=== PATIENT | male | born 1990 | race Caucasian/White ===

== ENCOUNTER 2024-10-29 12:31 | Outpatient (REF) | payer OTHER, SELFPAY ==
--- OUTSIDE RECORDS SUMMARY | 2024-10-29 12:38 | XMS_ITS | Encounter Summary ---
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 Phone Patient, Has No Pcp Or Ref Primary Care Provider Unavailable Reason for Visit * Reason Comments Abdominal Pain Encounter Details Date Type Department Care Team (Late st Contact Info) Description 10/25/2024 2:07 PM EDT - 10/25/2024 5:17 PM EDT Emergency [facility] Emergency Department [address] [place] [address] Radha Aldana MD [address] [place] [id number] Abdominal pain, generalized (Primary Dx); Constipation, unspecified constipation type Discharge Disposition: Home or Self Care () Social History Tobacco Use Types Packs/Day Years Used Date Smoking Tobacco: Never Smokeless Tobacco: Never Tobacco Cessation:Counseling Given: Not Answered Alcohol Use Standard Drinks/Week Comments Not Currently 0 (1 standard drink = 0.6 oz pur e alcohol) Sex and Gender Information Value Date Recorded Sex Assigned at Male 10/25/2024 2:11 PM EDT Legal Sex Male 1:36 PM EDT Gender Identity Not on file Sexual Orientation Not on file documented as of this encounter Last Filed Vital Signs Vital Sign Reading Time Taken Comments Blood Pressure 119/74 10/25/2024 5:05 PM EDT Pulse 69 10/25/2024 5:05 PM EDT Temperature 36.6 ??C (97.8 ??F) 10/25/2024 5:05 PM ED T Respiratory Rate 18 10/25/2024 5:05 PM EDT Oxygen Saturation 100% 10/25/2024 5:05 PM EDT Inhaled Oxygen Concentration - - Weight 81.6 kg (180 lb) 10/25/2024 1:48 PM EDT Height 180.3 cm (5' 11 ) 10/25/2024 1:48 PM EDT Body Mass Index 25.1 10/25/2024 1:48 PM EDT documented in this encounter Discharge Instructions * Discharge Instructions* Radha Aldana MD - 10/25/2024 4:58 PM EDT Your labs are reassuring. Your CT shows constipation. Take laxative as prescribed once daily. Drinkplenty of fluids and eat high-fiber diet. Please follow-up with your primary care physician. Pleasereturn to the emergency department for new or worsening symptoms or other concerns. * Attachments The following attachments cannot be sent through Care Everywhere. * Constipation in adults ??? ED discharge instructions (Lithuanian) documented in this encounter Medications at Time of Discharge polyethylene glycol 3350 (MIRALAX) 17 gram packet Take 1 packet (17 g total) by mouth daily as needed for constipation. Mix powder in 4 to 8 oz of water, juice, coffee, or tea prior to administratio n. 30 packet 10/25/2024 documented as of this encounter ED Notes * Radha Aldana MD - 10/25/2024 1:36 PM EDT History HPI: Chief Complaint Patient presents with Abdominal Pain 34-year-old male who denies significant past medical history here today for evaluation of abdominalpain that has been ongoing for the past 2 weeks. He reports he initially had some pain in his left flank but has now moved to his left upper quadrant. No associated fever. He reports some nausea but no vomiting. Reports he is having bowel movements and denies blood in his stool. No associated urinary symptoms or testicular pain. He states he was seen at urgent care and had imaging showing intussusception and was discharged with plan to follow-up with gastroenterology as an outpatient. He presents to the emergency department today due to ongoing symptoms. Patient History History reviewed. No pertinent past medical history. History reviewed. No pertinent surgical history. No family history on file. Social History Tobacco Use Smoking status: Never Smokeless tobacco: Never Vaping Use Vaping status: Never Used Substance Use Topics Alcohol use: Not Currently Drug use: Not Currently Types: Marijuana Vaping Questions Responses Vaping Use Never User Sexuality and Gender Identity Sexuality Legal Information Legal first name: Zeb Legal last name: Omari Legal sex: Male Gender Identity Patient's sex assigned at : Male Organ Inventory Organs the patient currently has: Organs present at or expected at to develop: Organs surgically enhanced or constructed: Organs hormonally enhanced or developed: breasts cervix ovaries uterus vagina penis prostate testes Review of Systems REVIEW OF SYSTEMS: Physical Exam Physical Exam ED Triage Vitals [10/25/24 1352] Temp Heart Rate Resp BP SpO2 36.6 ??C (97.8 ??F) 90 20 123/84 100 % Temp Source Heart Rate Source Patient Position BP Location Set FiO2 (O2%) Temporal Pulse Oximeter Sitting Left arm -- Physical Exam Vitals and nursing note reviewed. Constitutional: General: He is not in acute distress. Appearance: He is well-developed. He is not ill-appearing, toxic-appearing or diaphoretic. HENT: Head: Normocephalic and atraumatic. Mouth/Throat: Mouth: Mucous membranes are moist. Pharynx: Oropharynx is clear. Eyes: General: No scleral icterus. Cardiovascular: Rate and Rhythm: Normal rate and regular rhythm. Heart sounds: Normal heart sounds. Pulmonary: Effort: Pulmonary effort is normal. Breath sounds: Normal breath sounds. Abdominal: General: Abdomen is flat. There is no distension. Palpations: Abdomen is soft. Tenderness: There is abdominal tenderness (mild) in the left upper quadrant. There is no right CVA tenderness, left CVA tenderness, guarding or rebound. Skin: General: Skin is warm and dry. Neurological: General: No focal deficit present. Mental Status: He is alert. Medical Decision Making and ED Course Assessment and Plan: 34-year-old male who denies significant past medical history here today for evaluation of abdominal pain that has been ongoing for the past 2 weeks. He is afebrile and his vitalsare stable. He is overall very well-appearing. He appears well-hydrated with moist mucous membranes. His abdomen is soft with some minimal tenderness in the left upper quadrant. Differential diagnosis includes gastritis, pancreatitis, splenic infarct, constipation, bowel obstruction among others. Labs reassuring and show no leukocytosis and normal CMP and lipase. UA negative for infection. CT without acute pathology but does show moderate stool bulging. Discussed with patient that her symptoms may be due to constipation. Given his reassuring abdominal exam as well as reassuring workup will discharge patient home with prescription for MiraLAX, oral hydration and high-fiber diet. Will follow-up with PCP as an outpatient. Discussed return precautions for worsening symptoms. Amount and/or Complexity of Data Reviewed: Type of data reviewed: external radiology data reviewed Type of external notes reviewed: specialist Details: Outpatient eval two years ago with urology for testicular pain with reassuring ultrasound Zeb Salcido : 1990 CSN: [id number] Radha Aldana MD 10/25/24 1705 documented in this encounter Plan of Treatment Not on file documented as of this encounter Procedures * Due to [place] state law, this organization might not be sharing negative HIV tests. Procedure Name Priority Date/Time Associated Diagnosis Comments CT ABDOMEN PELVIS W CONTRAST STAT 10/25/2024 3:23 PM EDT URINALYSIS W/REFLEX TO MICROSCOPIC & CULTURE Routine 10/25/2024 2:33 PM EDT MUNOZ TOP, URN Routine 10/25/2024 2:33 PM EDT UA/CULTURE REFLEX Routine 10/25/2024 2:3 3 PM EDT CBC AUTO DIFFERENTIAL STAT Add-on 10/25/2024 2:24 PM EDT LIPASE STAT Add-on 10/25/2024 2:24 PM EDT COMPREHENSIVE METABOLIC PANEL STAT Add-on 10/25/2024 2:24 PM EDT documented in this encounter Results * Due to [place] state law, this organization might not be sharing negative HIV tests. * CT Abd Pelvis W Contrast (10/25/2024 3:23 PM EDT) Anatomical Region Laterality Modality Body Computed Tomogra phy 10/25/2024 3:29 PM EDT Impressions 10/25/2024 4:00 PM EDT Moderate colonic stool burden. No acute intra-abdominal abnormality. IDez, have reviewed the examination and concur with the findings as reported or so edited. Trainee: ??Jose Ramon Phan If this radiology report contains a blank impression section, it is an incomplete radiology report. ??Please contact the interpreting radiologist or applicable radiology division as soon as possible to obtain the completed interpretation. ? Workstation ID: [id number] Up-to-date CT equipment and radiation dose reduction techniques were employed. CTDIvol: 13.2 mGy. DLP: 692 mGy-cm. Narrative 10/25/2024 4:00 PM EDT EXAMINATION: CT ABDOMEN PELVIS W CONTRAST INDICATION: Left upper quadrant abdominal pain TECHNIQUE: Images of the abdomen and pelvis were obtained with intravenous contrast. Coronal and sagittal reformats were generated. COMPARISON: None available. ?? FINDINGS: LOWER THORAX: The visualized lung bases are clear. HEPATOBILIARY: There is a 5 mm hypodensity in hepatic segment VIII. Patent portal and hepatic veins. Normal gallbladder. No biliary ductal dilatation. SPLEEN: No splenomegaly. PANCREAS: No focal masses or ductal dilatation. ADRENAL GLANDS: No adrenal nodules. KIDNEYS/URETERS: Symmetric parenchymal enhancement. No hydronephrosis, calculi, or solid mass lesions. GI TRACT: Tortuous large bowel with moderate stool burden. No wall thickening or distention. The appendix is normal. PERITONEUM/RETROPERITONEUM: No ascites or free air. LYMPH NODES: No lymphadenopathy. VESSELS: Normal caliber abdominal aorta. Tortuous, dilated left gonadal vein. PELVIC ORGANS/BLADDER: Decompressed urinary bladder.. BONES AND SOFT TISSUES: Vertebral body height and alignment is maintained. No suspicious osseous lesion. Left acetabular bone island. Soft tissues are within normal limits. Resulting Agency Comment [id number] Procedure Note Dez Caceres MD - 10/25/2024 EXAMINATION: CT ABDOMEN PELVIS W CONTRAST INDICATION: Left upper quadrant abdominal pain TECHNIQUE: Images of the abdomen and pelvis were obtained with intravenouscontrast. Coronal and sagittal reformats were generated. COMPARISON: None available. FINDINGS: LOWER THORAX: The visualized lung bases are clear. HEPATOBILIARY: There is a 5 mm hypodensity in hepatic segment VIII. Patentportal and hepatic veins. Normal gallbladder. No biliary ductaldilatation. SPLEEN: No splenomegaly. PANCREAS: No focal masses or ductal dilatation. ADRENAL GLANDS: No adrenal nodules. KIDNEYS/URETERS: Symmetric parenchymal enhancement. No hydronephrosis,calculi, or solid mass lesions. GI TRACT: Tortuous large bowel with moderate stool burden. No wallthickening or distention. The appendix is normal. PERITONEUM/RETROPERITONEUM: No ascites or free air. LYMPH NODES: No lymphadenopathy. VESSELS: Normal caliber abdominal aorta. Tortuous, dilated left gonadalvein. PELVIC ORGANS/BLADDER: Decompressed urinary bladder.. BONES AND SOFT TISSUES: Vertebral body height and alignment is maintained.No suspicious osseous lesion. Left acetabular bone island. Soft tissuesare within normal limits. IMPRESSION: Moderate colonic stool burden. No acute intra-abdominal abnormality. Dez Jones, have reviewed the examination and concur with the findings asreported or so edited. Trainee: Jose Ramon Phan If this radiology report contains a blank impression section, it is anincomplete radiology report. Please contact the interpreting radiologistor applicable radiology division as soon as possible to obtain thecompleted interpretation. Workstation ID: [id number] Up-to-date CT equipment and radiation dose reduction techniques wereemployed. CTDIvol: 13.2 mGy. DLP: 692 mGy-cm. us Radha Aldana MD [facility] CT PROCEDURES Final Result * Munoz Top, Urine (10/25/2024 2:33 PM EDT) Extra Tube Hold for add-ons. 10/25/2024 7:05 PM EDT [facility] Comment:Auto resulted. Urine Urine specimen collection, clean catch / Unknown Non-Blood Collection / Unknown 10/25/2024 2:33 PM EDT 10/25/2024 2:40 PM EDT us Radha Aldana MD LAB URINE ORDERABLES Final Res ult [facility] [address] [place] [address], [place] * (ABNORMAL) Urinalysis W/Reflex to Microscopic & Culture (10/25/2024 2:33 PM EDT) Color, Urine Light Yellow Colorless, Light Yellow, Yellow, Dark Yellow 10/25/2024 2:49 PM EDT [facility] Clarity, Urine Clear Clear 10/25/2024 2:49 PM EDT [facility] Specific [place], Urine 1.020 <1.030 10/25/2024 2:49 PM EDT [facility] pH, Urine 8.0 4.6 - 8.0 10/25/2024 2:49 PM EDT [facility] Protein, Urine Trace(A) Negative 10/25/2024 2:49 PM EDT [facility] Glucose, Urine Normal Normal 10/25/2024 2:49 PM EDT [facility] Ketones, Urine Negative Negative 10/25/2024 2:49 PM EDT [facility] Bilirubin, Urine Negative Negative 10/25/2024 2:49 PM EDT [facility] Blood, Urine Negative Negative 10/25/2024 2:49 PM EDT [facility] Nitrite, Urine Negative Negative 10/25/2024 2:49 PM EDT [facility] Urobilinogen, Urine Normal Normal 10/25/2024 2:49 PM EDT [facility] Leukocyte Esterase, Urine Negative Negative 10/25/2024 2:49 PM EDT [facility] WBC, Urine 1 0 - 2 /HPF 10/25/2024 2:49 PM EDT [facility] RBC, Urine 1 0 - 2 /HPF 10/25/2024 2:49 PM EDT [facility] Hyaline Casts, Urine 0 0 - 2 /LPF 10/25/2024 2:49 PM EDT [facility] Bacteria, Urine None Seen None /HPF /HPF 10/25/2024 2:49 PM EDT [facility] Mucus, Urine Rare /LPF 10/25/2024 2:49 PM EDT [facility] Urine Urine specimen collection, clean catch / Unknown Non-Blood Collection / Unknown 10/25/2024 2:33 PM EDT 10/25/2024 2:40 PM EDT us Radha Aldana MD LAB URINE ORDERABLES Final Res ult Performing Organization Address City/[facility]/ZIP Co de Phone Number [facility] [address] [place] [phone], [place] * Lipase (10/25/2024 2:24 PM EDT) Lipase 31 13 - 60 U/L 10/25/2024 3:02 PM EDT [facility] Blood Structure of peripheral vein / Unknown Venipuncture / Unknown 10/25/2024 2:24 PM EDT 10/25/2024 2:28 PM EDT us Radha Aldana MD LAB BLOOD ORDERABLES Final Res ult [facility] [address] [place] [phone], [place] * (ABNORMAL) CMP - Comprehensive Metabolic Panel (10/25/2024 2:24 PM EDT) NA 140 135 - 145 mmol/L 10/25/2024 3:02 PM EDT [facility] K 4.0 3.5 - 5.3 mmol/L 10/25/2024 3:02 PM [facility] Cl 104 98 - 107 mmol/L 10/25/2024 3:02 PM EDT [facility] CO2 25 22 - 32 mmol/L 10/25/2024 3:02 PM T [facility] Anion Gap 11 5 - 15 10/25/2024 3:02 PM T [facility] Glucose 102(H) 65 - 99 mg/dL 10/25/2024 3:02 PM [facility] Creatinine 1.05 0.60 - 1.30 mg/dL 10/25/2024 3:02 PM [facility] Calcium 9.4 8.6 - 10.5 mg/dL 10/25/2024 3:02 PM [facility] Total Protein 7.3 6.0 - 8.0 g/dL 10/25/2024 3:02 PM T [facility] Albumin 4.6 3.5 - 5.2 g/dL 10/25/2024 3:02 PM [facility] Bilirubin, Total 1.0 0.2 - 1.2 mg/dL 10/25/2024 3:02 PM [facility] Alkaline Phosphatase 55 35 - 129 U/L 10/25/2024 3:02 PM EDT [facility] AST 24 10 - 40 U/L 10/25/2024 3:02 PM T [facility] ALT 19 10 - 40 U/L 10/25/2024 3:02 PM T [facility] BUN 10 7 - 23 mg/dL 10/25/2024 3:02 PM EDT [facility] eGFR >90 >=60 mL/min/1. 73m2 10/25/2024 3:02 PM EDT [facility] Comment:The estimated glomer ular filtration rate (eGFR) is calculated using a new formula developed by the NKF-ASN task force to eliminate race-based correction factors. The new formula uses serum/plasma creatinine, age, and gender to determine eGFR. A value below 60mls/min might indicate kidney disease and will be flagged. For additional information, see Lorrie et al, Am J Kidney Dis. 2021;79(2):268- 288, A Unifying Approach for GFR estimation: Recommendations of the NKF-ASN Task Force on Reassessing the Inclusion of Race in Diagnosing Kidney Disease . Globulin, Total 2.7 2.1 - 4.2 g/dL 10/25/2024 3:02 PM EDT [facility] A/G Ratio 1.7 1.5 - 3.0 10/25/2024 3:02 PM EDT [facility] Blood Structure of peripheral vein / Unknown Venipuncture / Unknown 10/25/2024 2:24 PM EDT 10/25/2024 2:28 PM EDT us Radha Aldana MD LAB BLOOD ORDERABLES Final Res ult [facility] [address] [place] [phone], * (ABNORMAL) CBC Auto Differential (10/25/2024 2:24 PM EDT) WBC 4.6 3.8 - 10.8 10*3/uL 10/25/2024 2:50 PM EDT [facility] RBC 4.90 4.20 - 5.80 10*6/uL 10/25/2024 2:50 PM EDT [facility] Hemoglobin 11.9(L) 13.2 - 17.1 g/dL 10/25/2024 2:50 PM EDT [facility] Hematocrit 37.2(L) 38.5 - 50.0 % 10/25/2024 2:50 PM EDT [facility] MCV 75.9(L) 80.0 - 100.0 fL 10/25/2024 2:50 PM EDT [facility] MCH 24.3(L) 27.0 - 33.0 pg 10/25/2024 2:50 PM EDT [facility] MCHC 32.0 32.0 - 36.0 g/dL 10/25/2024 2:50 PM [facility] RDW 14.1 11.0 - 15.0 % 10/25/2024 2:50 PM [facility] Platelets 321 140 - 400 10*3/uL 10/25/2024 2:50 PM EDT [facility] MPV 9.3 7.5 - 12.5 fL 10/25/2024 2:50 PM EDT [facility] Neutrophil % 71.3 % 10/25/2024 2:50 PM EDT [facility] Immature Grans % 0.2 0.0 - 0.9 % 10/25/2024 2:50 PM EDT [facility] Lymphocyte % 20.1 % 10/25/2024 2:50 PM EDT [facility] Monocyte % 7.6 % 10/25/2024 2:50 PM EDT [facility] Eosinophil % 0.2 % 10/25/2024 2:50 PM EDT [facility] Basophil % 0.6 % 10/25/2024 2:50 PM T [facility] Neutrophil # 3.30 1.50 - 7.80 10*3/uL 10/25/2024 2:50 PM EDT [facility] Immature Grans # <0.03 <=0.03 10*3/uL 10/25/2024 2:50 PM EDT [facility] Lymphocyte # 0.90 0.85 - 3.90 10*3/uL 10/25/2024 2:50 PM EDT [facility] Monocyte # 0.40 0.20 - 0.95 10*3/uL 10/25/2024 2:50 PM EDT [facility] Eosinophil # <0.03 0.02 - 0.50 10*3/uL 10/25/2024 2:50 PM EDT [facility] Basophil # <0.03 0.00 - 0.20 10*3/uL 10/25/2024 2:50 PM EDT [facility] nRBC % 0.0 /100 WBCs 10/25/2024 2:50 PM EDT [facility] nRBC # <0.01 <0.01 10*3/uL 10/25/2024 2:50 PM EDT [facility] Blood Structure of peripheral vein / Unknown Venipuncture / Unknown 10/25/2024 2:24 PM EDT 10/25/2024 2:27 PM EDT us Radha Aldana MD LAB BLOOD ORDERABLES Final Res ult [facility] [address] [place] [address], documented in this encounter Visit Diagnoses Diagnosis Abdominal pain, generalized- Primary Constipation, unspecified constipation type documented in this encounter Administered Medications Inactive Administered Medications - up to 3 most recent administrations Medication Order MAR Action Action Date Dose Rate Site acetaminophen (TYLENOL) tablet 975 mg 975 mg, oral, Once, On 10/25/24 at 1430, 1 dose Given 10/25/2024 2:36 PM EDT 975 mg iohexoL (OMNIPAQUE) 350 mg iodine/mL contrast 10-100 mL 10-100 mL, intravenous, Once in imaging, contrast, Starting on Fri10/25/24 at 1515, 1 dose, Until Fri10/25/24 at 1515 Given 10/25/2024 3:15 PM EDT 100 mL ondansetron (ZOFRAN) injection 4 mg 4 mg, intravenous, Once, On Fri10/25/24 at 1430, 1 dose Given 10/25/2024 2:37 PM EDT 4 mg documented in this encounter Active and Recently Administered Medications Times are shown in EDT. Scheduled Medication Order 10/23/2024 10/24/2024 10/25/2024 acetaminophen (TYLENOL) tablet 975 mg (COMPLETED) 975 mg, oral, Once, On Fri10/25/24 at 1430, 1 dose 1436 (Given - Provid er: Leslie Tate RN) ondansetron (ZOFRAN) injection 4 mg (COMPLETED) 4 mg, intravenous, Once, On Fri10/25/24 at 1430, 1 dose 1437 (Given - Provid er: Leslie Tate RN) PRN Medication Order 10/23/2024 10/24/2024 10/25/2024 iohexoL (OMNIPAQUE) 350 mg iodine/mL contrast 10-100 mL (COMPLETED) 10-100 mL, intravenous, Once in imaging, contrast, Starting on Fri10/25/24 at 1515, 1 dose, Until Fri10/25/24 at 1515 1515 (Given - Provid er: RT Claudia(R)) documented in this encounter Care Teams Steam Plant Operator Relationship Specialty Start Date End Date Patient, Has No Pcp Or Ref DO NOT EDIT THIS RECORD VIA PROVIDER ON THE FLY PCP - General Automotive Dismantler 10/25/24 documented as of this encounter
--- OUTSIDE RECORDS SUMMARY | 2024-10-29 12:38 | XMS_ITS | Clinical Summary ---
Author Organization [employer] Address [address] [facility] [address] [place] [address] Care Team Providers Care Public Transportation Inspector Name Role Phone Toyin Burch MD Primary Care Pro vider Allergies Active Allergy Reactions Criticality Noted Date Comments Topiramate Other 10/29/2024 bruising Medications polyethylene glycol, PEG, 3350 (Miralax) 17 g packet TAKE 1 PACKET 17 GIVE TOTAL) BY MOUTH DAILY NEEDED FOR CONSTIPATION MIX POWDER IN 4 TO 8 OZ OF WATER, JUICE, COFFEE, OR TEA PRIOR TO ADM Active omeprazole (PriLOSEC) [address] capsuleIndicati ons:Dark stools Take 1 capsule (40 mg) by mouth before breakfast. Do not crush or chew. 90 capsule 5 10/30/19 26 Active ondansetron (Zofran) 4 MG tablet Take 1 tablet (4 mg) by mouth every 8 (eight) hours if needed for nausea or vomiting for up to 7 days. 20 tablet 1 5 11/06/19 25 Active Encounters Date Type Department Care Team Description 10/29/2024 10:15 AM EDT Office Visit [facility] MEDICINE [address] [place] [phone] Toyin Burch MD Liver lesion (Primary Dx); Dietary counseling; Exercise counseling; Dark stools; Diarrhea, unspecified type; Annual physical exam 10/29/2024 Travel 10/28/2024 Telephone [facility] MEDICINE [address] [place] [phone] Toyin Burch MD CHART PREP 10/22/2024 Telephone [facility] MEDICINE [address] [place] [address] Toyin Burch MD new patient visit from Last 3 Months Immunizations Immunization Administration Dates Next Due DTP 08/05/1996, 4,1992,06/28,1992 Hep B, Adolescent or Pediatric 1992,1991,1992 Hib (PRP-T) 05/17/1993, 3,1992,04/19 Influenza, IIV3, injectable 03/25/2006, 5,04/03/2004 MMR 08/05/1996,05/17/1993 Meningococcal MCV4P ACYW-135 02/11/2007 OPV, Trivalent 08/05/1996, 4,1992,04/19 TD (adult), 2 Lf tetanus tox oid, preservative free, adsorbed 12/30/2003 Tdap 04/26/2023,03/03/2008 Varicella 03/03/2008,04/27/1998 Family History Medical History Relation Name Comments [place] Father dm2 Father CBAF ,HF Maternal Grandfather Stroke Maternal Grandfather Breast cancer Mother DM2 Mother Relation Name Status Comments Father Maternal Grandfather Mother Social History Tobacco Use Types Packs/Day Years Used Date Smoking Tobacco: Never Passive Smoke Exposure: Never Smokeless Tobacco: Never Tobacco Cessation:Counseling Given: Not Answered Alcohol Use Standard Drinks/Week Comments Yes 0 (1 standard drink = 0.6 oz pur e alcohol) 16 onz beer once a week Depression Answer Date Recorded Patient Health Questionnaire-9 Score 7 10/29/2024 Patient Health Questionnaire-9 Score 7 10/29/2024 Last PHQ-9: Questionnaire Data Not on file 0 10/29/2024 Housing Stability Answer Date Recorded What is your housing situation today? I have jose a meza 10/29/[address] you li ve. Do you have problems with any of the following? None of the above 10/29/2024 Food Insecurity Answer Date Recorded Within the past 12 months, y ou worried that your food would run out before you got money to buy more: Never True 10/29/2024 Within the past 12 months,th e food you bought just didn't last and you didn't have enough money to get more: Never True Transportation Answer Date Recorded In the past 12 months, has l ack of transportation kept you from medical appts, meetings, work or from getting things needed for daily living? No 10/29/2024 Utilities Answer Date Recorded In the past 12 months, has t he electric, gas, oil or water company threatened to shut off services in your home? No 10/29/2024 Depression Answer Date Recorded Patient Health Questionnaire-2 Score 0 10/29/2024 Internet Access Answer Date Recorded Internet Access Q1 Yes 10/29/2024 Internet Access Q2 Not on file 10/29/2024 Sex and Gender Information Value Date Recorded Sex Assigned at Male 10/28/2024 9:44 AM EDT Legal Sex Male 4:11 PM EDT Gender Identity Male 10/28/2024 9:44 AM EDT Sexual Orientation Straight 10/29/2024 11 :26 AM EDT Last Filed Vital Signs Vital Sign Reading Time Taken Comments Blood Pressure 114/78 10/29/2024 10:25 AM EDT Pulse 89 10/29/2024 10:25 AM EDT Temperature 36.7 ??C (98 ??F) 10/29/2024 10:25 AM EDT Respiratory Rate 20 10/29/2024 10:25 AM EDT Oxygen Saturation 98% 10/29/2024 10:25 AM EDT Inhaled Oxygen Concentration - - Weight 86 kg (189 lb 9.6 oz) 10/29/2024 10:25 AM EDT Height 180.3 cm (5' 11 ) 10/29/2024 10:25 AM EDT Body Mass Index 26.44 10/29/2024 10:25 AM EDT Plan of Treatment Upcoming Encounters Date Type Department Care Team (Late st Contact Info) Description 02/02/2025 3:00 PM EDT Office Visit [facility] MEDICINE [address] [place] [phone] Toyin Burch MD [address], [place] [phone] Health Maintenance Due Date Last Done Comments HIV Screening 1992 Family Planning (PISQ) 02/11/2007 Hepatitis C Screening 02/11/2010 Hepatitis A Vaccines (1 of 2 - Risk 2-dose series) 02/11/2011 COVID-19 Vaccine (2 - 2024-25 season) 2024 03/12/2021 Influenza Vaccine (#1) 2024 6, 04/02/2005, 04/03/2004 Alcohol/Substance Use Screening 10/29/2025 10/29/2024 Depression Screening 10/29/2025 10/29/2024, 10/30/19 SDOH Screening 10/29/2025 10/29/2024 Tobacco Screening 10/29/2025 10/29/2024 DTaP/Tdap/Td Vaccines (8 - Td or Tdap) 04/26/2033 04/26/2023, 03/03/2008, 12/30/2003, Additional history exists Zoster Vaccines (1 of 2) 02/11/2042 RSV Patients and Patients Aged 60 years or older (1 - 1-dose 75+ series) 02/11/2067 Hepatitis B Vaccines Completed 1992, 1992, 1992 HIB Vaccines Completed 05/17/1993, 08/14, 1992, Additional history exists IPV Vaccines Completed 08/05/1996, 06/1993, 1992, Additional history exists Meningococcal Vaccine Aged Out 02/11/2007 No jack tracey eligible based on patient's age to complete this topic HPV Vaccines Aged Out No longer eligi ble based on patient's age to complete this topic Meningococcal B Vaccine Aged Out No l onger eligible based on patient's age to complete this topic Pneumococcal Vaccine: Pediatrics (0 to 5 Years) and At-Risk Patients (6 to 49) Years) Aged Out No longer eligible based on patient's age to complete this topic RSV under 20 months Aged Out No longe r eligible based on patient's age to complete this topic Rotavirus Vaccines Aged Out No longer eligible based on patient's age to complete this topic Insurance [facility] [id number] Care Teams Public Transportation Inspector Relationship Specialty Start Date End Date Toyin Burch MD [address] [place] [address] [phone] PCP - General Internal Medicine 10/29/24
--- OUTSIDE RECORDS SUMMARY | 2024-10-29 12:38 | XMS_ITS | Clinical Summary ---
Author Organization [facility] Address [address] [place] [address] Care Team Providers Care Radiology Resident Name Role Phone Patient, Has No Pcp Or Ref Primary Care Provider Unavailable Allergies No known active allergies Medications polyethylene glycol 3350 (MIRALAX) 17 gram packet Take 1 packet (17 g total) by mouth daily as needed for constipatio n. Mix powder in 4 to 8 oz of water, juice, coffee, or tea prior to administrat ion. 30 packet 10/25/2024 Active Encounters Date Type Department Care Team Description 10/25/2024 2:07 PM EDT - 10/25/2024 5:17 PM EDT Emergency [facility] Emergency Department [address] [place] [address] Radha Aldana MD Abdominal pain, generalized (Primary Dx); Constipation, unspecified constipation type Discharge Disposition: Home or Self Care (01) from Last 3 Months Social History Tobacco Use Types Packs/Day Years [...] on file Sexual Orientation Not on file Last Filed Vital Signs Vital Sign Reading [...] Mass Index 25.1 10/25/2024 1:48 PM EDT Plan of Treatment Health Maintenance Due Date Last Done Comments HIV Screening 1992 Hepatitis C Screening 1992 DTaP,Tdap,and Td Vaccines (7 - Td or Tdap) 03/03/2018 03/03/2008, 12/30/2003, 08/05/1996, Additional history exists COVID-19 Vaccine ( season) 2024 Alcohol/Substance Use Screening 06/16/2024 Depression Screening and Follow-Up 06/16/2024 Social Drivers of Health Annual Screening 06/16/2024 Influenza Vaccine (Season Ended) 2025 03/25/2006, 04/02/2005, 04/03/2004 RSV Vaccine (60+ years old and patients) (1 - 1-dose 75+ series) 02/11/2067 Hepatitis B Vaccines Completed 1992, 1992, 1992 Varicella Vaccines Completed 03/03/2008, 04/27/1998 Pneumococcal Vaccine: Pediatric (0-5 Years) and At-Risk Patients (6-50 Years) Aged Out No longer eligible based on patient's age to complete this topic Procedures * Due to [place] state law, this organization might not be sharing negative HIV tests. Procedure Name Priority Date/Time Associated Diagnosis Comments CT ABDOMEN PELVIS W CONTRAST STAT 10/25/2024 3:23 PM EDT MUNOZ TOP, URN Routine 10/25/2024 2:33 PM EDT UA/CULTURE REFLEX Routine 10/25/2024 2:3 3 PM EDT URINALYSIS W/REFLEX TO MICROSCOPIC & CULTURE Routine 10/25/2024 2:33 PM EDT LIPASE STAT Add-on 10/25/2024 2:24 PM EDT COMPREHENSIVE METABOLIC PANEL STAT Add-on 10/25/2024 2:24 PM EDT CBC AUTO DIFFERENTIAL STAT Add-on 10/25/2024 2:24 PM EDT from Last 3 Months Results * Due to [place] state law, this organization might not be [...] obtain the completed interpretation. ? Workstation ID: [id number] Up-to-date CT equipment and radiation dose reduction [...] are within normal limits. Resulting Agency Comment [id number] Procedure Note Dez Caceres MD - 10/25/2024 [...] possible to obtain thecompleted interpretation. Workstation ID: [id number] Up-to-date CT equipment and radiation dose reduction techniques wereemployed. CTDIvol: 13.2 mGy. DLP: 692 mGy-cm. us Radha Aldana MD IM CT PROCEDURES Final Result * Munoz Top, Urine (10/25/2024 2:33 PM EDT) Extra Tube Hold for add-ons. 10/25/2024 7:05 PM EDT [facility] Comment:Auto resulted. Urine Urine specimen collection, clean catch / Unknown Non-Blood Collection / Unknown 10/25/2024 2:33 PM EDT 10/25/2024 2:40 PM EDT us Radha Aldana MD LAB URINE ORDERABLES Final Res ult [facility] [address] [place] [address], [place] * (ABNORMAL) Urinalysis W/Reflex to Microscopic & Culture (10/25/2024 2:33 PM EDT) Pathologist [facility] Color, Urine Light Yellow Colorless, Light Yellow, Yellow, Dark Yellow 10/25/2024 2:49 PM EDT [facility] Clarity, Urine Clear Clear 10/25/2024 2:49 PM EDT [facility] Specific [place], Urine 1.020 <1.030 10/25/2024 2:49 PM EDT [facility] pH, Urine 8.0 4.6 - 8.0 10/25/2024 2:49 PM EDT [facility] Protein, Urine Trace(A) Negative 10/25/2024 2:49 PM EDT [facility] Glucose, Urine Normal Normal 10/25/2024 2:49 PM EDT [facility] Ketones, Urine Negative Negative 10/25/2024 2:49 PM EDT [facility] Bilirubin, Urine Negative Negative 10/25/2024 2:49 PM EDT [facility] Blood, Urine Negative Negative 10/25/2024 2:49 PM EDT [facility] Nitrite, Urine Negative Negative 10/25/2024 2:49 PM EDT [facility] Urobilinogen, Urine Normal Normal 10/25/2024 2:49 PM EDT [facility] Leukocyte Esterase, Urine Negative Negative 10/25/2024 2:49 PM EDT [facility] WBC, Urine 1 0 - 2 /HPF 10/25/2024 2:49 PM EDT [facility] RBC, Urine 1 0 - 2 /HPF 10/25/2024 2:49 PM EDT [facility] Hyaline Casts, Urine 0 0 - 2 /LPF 10/25/2024 2:49 PM EDT [facility] Bacteria, Urine None Seen None /HPF /HPF 10/25/2024 2:49 PM EDT [facility] Mucus, Urine Rare /LPF 10/25/2024 2:49 PM EDT [facility] Urine Urine specimen collection, clean catch / Unknown Non-Blood Collection / Unknown 10/25/2024 2:33 PM EDT 10/25/2024 2:40 PM EDT us Radha Aldana MD LAB URINE ORDERABLES Final Res ult [facility] [address] [place] [address], * (ABNORMAL) CBC Auto Differential (10/25/2024 2:24 PM EDT) WBC 4.6 3.8 - 10.8 10*3/uL 10/25/2024 2:50 PM EDT [facility] RBC 4.90 4.20 - 5.80 10*6/uL 10/25/2024 2:50 PM EDT [facility] Hemoglobin 11.9(L) 13.2 - 17.1 g/dL 10/25/2024 2:50 PM EDT [facility] Hematocrit 37.2(L) 38.5 - 50.0 % 10/25/2024 2:50 PM EDT [facility] MCV 75.9(L) 80.0 - 100.0 fL 10/25/2024 2:50 PM [facility] MCH 24.3(L) 27.0 - 33.0 pg 10/25/2024 2:50 PM EDT [facility] MCHC 32.0 32.0 - 36.0 g/dL 10/25/2024 2:50 PM [facility] RDW 14.1 11.0 - 15.0 % 10/25/2024 2:50 PM [facility] Platelets 321 140 - 400 10*3/uL 10/25/2024 2:50 PM [facility] MPV 9.3 7.5 - 12.5 fL 10/25/2024 2:50 PM [facility] Neutrophil % 71.3 % 10/[facility]24 [facility] Immature Grans % 0.2 0.0 - 0.9 % 10/25/2024 2:50 PM [facility] Lymphocyte % 20.1 % 10/25/2024 2:50 PM EDT [facility] Monocyte % 7.6 % 10/25/2024 2:50 PM EDT [facility] Eosinophil % 0.2 % 10/25/2024 2:50 PM EDT [facility] Basophil % 0.6 % 10/25/2024 2:50 PM [facility] Neutrophil # 3.30 1.50 - 7.80 10*3/uL 10/25/2024 2:50 PM T [facility] Immature Grans # <0.03 <=0.03 10*3/uL 10/25/2024 2:50 PM EDT [facility] Lymphocyte # 0.90 0.85 - 3.90 10*3/uL 10/25/2024 2:50 PM EDT [facility] Monocyte # 0.40 0.20 - 0.95 10*3/uL 10/25/2024 2:50 PM EDT [facility] Eosinophil # <0.03 0.02 - 0.50 10*3/uL 10/25/2024 2:50 PM EDT [facility] Basophil # <0.03 0.00 - 0.20 10*3/uL 10/25/2024 2:50 PM EDT [facility] nRBC % 0.0 /100 WBCs 10/25/2024 2:50 PM EDT [facility] nRBC # <0.01 <0.01 10*3/uL 10/25/2024 2:50 PM EDT [facility] Blood Structure of peripheral vein / Unknown Venipuncture / Unknown 10/25/2024 2:24 PM EDT 10/25/2024 2:27 PM EDT us Radha Aldana MD LAB BLOOD ORDERABLES Final Res ult [facility] [address] [place] [address], * Lipase (10/25/2024 2:24 PM EDT) Lipase 31 13 - 60 U/L 10/25/2024 3:02 PM EDT [facility] Blood Structure of peripheral vein / Unknown Venipuncture / Unknown 10/25/2024 2:24 PM EDT 10/25/2024 2:28 PM EDT us Radha Aldana MD LAB BLOOD ORDERABLES Final Res ult [facility] [address] [place] [address], * (ABNORMAL) CMP - Comprehensive Metabolic Panel (10/25/2024 2:24 PM EDT) NA 140 135 - 145 mmol/L 10/25/2024 3:02 PM EDT [facility] K 4.0 3.5 - 5.3 mmol/L 10/25/2024 3:02 PM EDT [facility] Cl 104 98 - 107 mmol/L 10/25/2024 3:02 PM EDT [facility] CO2 25 22 - 32 mmol/L 10/25/2024 3:02 PM EDT [facility] Anion Gap 11 5 - 15 10/25/2024 3:02 PM EDT [facility] Glucose 102(H) 65 - 99 mg/dL 10/25/2024 3:02 PM EDT [facility] Creatinine 1.05 0.60 - 1.30 mg/dL 10/25/2024 3:02 PM EDT [facility] Calcium 9.4 8.6 - 10.5 mg/dL 10/25/2024 3:02 PM EDT [facility] Total Protein 7.3 6.0 - 8.0 g/dL 10/25/2024 3:02 PM EDT [facility] Albumin 4.6 3.5 - 5.2 g/dL 10/25/2024 3:02 PM EDT [facility] Bilirubin, Total 1.0 0.2 - 1.2 mg/dL 10/25/2024 3:02 PM EDT [facility] Alkaline Phosphatase 55 35 - 129 U/L 10/25/2024 3:02 PM EDT [facility] AST 24 10 - 40 U/L 10/25/2024 3:02 PM EDT [facility] ALT 19 10 - 40 U/L 10/25/2024 3:02 PM EDT [facility] BUN 10 7 - 23 mg/dL 10/25/2024 3:02 PM EDT [facility] eGFR >90 >=60 mL/min/1. 73m2 10/25/2024 3:02 PM EDT [facility] Comment:The estimated glomer ular filtration rate (eGFR) is calculated using a new formula developed by the NKF-ASN task force to eliminate race-based correction factors. The new formula uses serum/plasma creatinine, age, and gender to determine eGFR. A value below 60mls/min might indicate kidney disease and will be flagged. For additional information, see Andrew et al, Am J Kidney Dis. 2021;79(2):268- 288, A Unifying Approach for GFR estimation: Recommendations of the NKF-ASN Task Force on Reassessing the Inclusion of Race in Diagnosing Kidney Disease . Globulin, Total 2.7 2.1 - 4.2 g/dL 10/25/2024 3:02 PM EDT [facility] A/G Ratio 1.7 1.5 - 3.0 10/25/2024 3:02 PM EDT [facility] Blood Structure of peripheral vein / Unknown Venipuncture / Unknown 10/25/2024 2:24 PM EDT 10/25/2024 2:28 PM EDT us Radha Aldana MD LAB BLOOD ORDERABLES Final Res ult [facility] [address] [place] [address], from Last 3 Months Insurance [employer] Care Teams Radiology Resident Relationship Specialty Start Date End Date Patient, Has No Pcp Or Ref DO NOT EDIT THIS RECORD VIA PROVIDER ON THE FLY PCP - General Calculus Tutor 10/25/24
--- OUTSIDE RECORDS SUMMARY | 2024-10-29 12:38 | XMS_ITS | Encounter Summary ---
Author Organization [facility] Address [address] [place] [phone] Phone Care Team Providers Care Manager Intensive Care Name Role Phone Alicia Veliz MD Primary Care Provider [phone] Encounter Details Date Type Department Care Team (Late st Contact Info) Description 01/14/2010 Documentation EM Family Medicine [address] [place] [address] Family Medicine, Physician [address] [place], [place] [phone] Social History Tobacco Use Types Packs/Day Years Used Date Smoking Tobacco: Never Assessed Sex and Gender Information Value Date Recorded Sex Assigned at Not on file Legal Sex Male 4:32 PM EDT Gender Identity Not on file Sexual Orientation Not on file documented as of this encounter Plan of Treatment Not on file documented as of this encounter Visit Diagnoses Not on filedocumented in this encounter Care Teams Manager Intensive Care Relationship Specialty Start Date End Date Alicia Veliz MD [address] [place] [address] [place] [address] PCP - General 01/24/17 documented as of this encounter
--- OUTSIDE RECORDS SUMMARY | 2024-10-29 12:38 | XMS_ITS | Clinical Summary ---
Author Organization [facility] Address [address] [place] [address] Care Team Providers Care Compression Molding Machine Tender Name Role Phone Pcp, No Primary Care Provider Unavailabl e Allergies Active Allergy Reactions Criticality Noted Date Comments Topiramate Bleeding (Non-Gastrointestinal) High 10/14 Medications No known medications Social History Tobacco Use Types Packs/Day Years Used Date Smoking Tobacco: Never Smokeless Tobacco: Never Alcohol Use Standard Drinks/Week Comments Yes 0 (1 standard drink = 0.6 oz pur e alcohol) occasionally Sex and Gender Information Value Date Recorded Sex Assigned at Not on file Legal Sex Male 4:46 PM EDT Gender Identity Not on file Sexual Orientation Not on file Last Filed Vital Signs Vital Sign Reading Time Taken Comments Blood Pressure 123/74 10/25/2022 5:03 PM EDT Pulse 84 10/25/2022 5:03 PM EDT Temperature 36.9 ??C (98.5 ??F) 10/25/2022 5:03 PM ED T Respiratory Rate - - Oxygen Saturation 98% 10/25/2022 5:03 PM EDT Inhaled Oxygen Concentration - - Weight 74.8 kg (165 lb) 01/21/2023 4:26 PM EDT Height 180.3 cm (5' 11 ) 01/21/2023 4:26 PM EDT Body Mass Index 23.01 01/21/2023 4:26 PM EDT Plan of Treatment Health Maintenance Due Date Last Done Comments Hepatitis C Virus Screening 1992 HIV Screening 02/11/2005 DTaP/Tdap/Td Vaccines (1 - Tdap) 02/11/2011 Hepatitis B Vaccines (1 of 3 - 19+ 3-dose series) 02/11/2011 COVID-19 Vaccine (2023-2 5 season) 2024 Influenza Vaccine 01/14/2025 03/25/2006, 04/02/2005, 04/03/2004 HPV Vaccines Aged Out No longer eligi ble based on patient's age to complete this topic Pneumococcal Vaccine: Pediatric (0-5 Years) and At-Risk Patients (6 to 49 Years) Aged Out No longer eligible b ased on patient's age to complete this topic Insurance [facility] Care Teams Compression Molding Machine Tender Relationship Specialty Start Date End Date Pcp, No PCP - General General Medicine 10/25/22
--- OUTSIDE RECORDS SUMMARY | 2024-10-29 12:38 | XMS_ITS | Encounter Summary ---
Author Organization [facility] Address [address] [place] [address] Phone Care Team Providers Care Natural Remedy Consultant Name Role Phone Alicia Veliz MD Primary Care Provider [phone] Encounter Details Date Type Department Care Team (Late st Contact Info) Description 07/06/2010 Documentation EM Family Medicine [address] [place] [address] Family Medicine, Physician [address] [place], [place] [phone] Social History Tobacco Use Types Packs/Day Years [...] on filedocumented in this encounter Care Teams Natural Remedy Consultant Relationship Specialty Start Date End Date Alicia Veliz MD [address] [place] [address] [place] [id number] PCP - General 01/24/17 documented as of this encounter
--- OUTSIDE RECORDS SUMMARY | 2024-10-29 12:38 | XMS_ITS | Encounter Summary ---
Author Organization [employer] Address [address] [facility] [address] [place] [address] Care Team Providers Care Clerical And Administrative Workers Name Role Phone Toyin Burch MD Primary Care Pro vider Reason for Referral * Imaging (Routine) - Pending Review Specialty Diagnoses / Procedures Referred By Contac t Referred To Contact Radiology Diagnoses Liver lesion Procedures US Abdomen Complete Toyin Burch MD [address] [place] [address] Phone: tel: fax: Referral ID Status Reason Start Date Expiration Date V isits Requested Visits Authorized [id number] Pending Review 10/29/2024 10/29/2025 1 1 Encounter Details Date Type Department Care Team (Late st Contact Info) Description 10/29/2024 10:15 AM EDT Office Visit [facility] [address] [place] [phone] Toyin Burch MD [address], [place] [phone] Liver lesion (Primary Dx); Dietary counseling; Exercise counseling; Dark stools; Diarrhea, unspecified type; Annual physical exam Social History Tobacco Use Types Packs/Day Years [...] Orientation Straight 10/29/2024 11 :26 AM EDT documented as of this encounter Last Filed [...] Mass Index 26.44 10/29/2024 10:25 AM EDT documented in this encounter Functional Status * Over the past 2 weeks, how often have you been bothered by any of the following problems? Question Answer Date of Assessment Author Patient Health Questionnaire -2 Score 0 10/29/2024 10:28 AM Colleen Dumas MA * Little interest or pleasure in doing things Answer Date of Assessment Author Not at all 10/29/2024 10:28 AM Colleen Dumas MA * Feeling down, depressed, or hopeless Answer Date of Assessment Author Not at all 10/29/2024 10:28 AM Colleen Dumas MA * Trouble falling or staying asleep, or sleeping too much Answer Date of Assessment Author Several days 10/29/2024 10:28 AM Colleen Dumas MA * Feeling tired or having little energy Answer Date of Assessment Author Several days 10/29/2024 10:28 AM Colleen Dumas MA * Poor appetite or overeating Answer Date of Assessment Author Nearly every day 10/29/2024 10:28 AM Colleen Dumas MA * Feeling bad about yourself - or that you are a failure or have let yourself or your family down Answer Date of Assessment Author Not at all 10/29/2024 10:28 AM Colleen Dumas MA * Trouble concentrating on things, such as reading the newspaper or watching television Answer Date of Assessment Author More than half the days 10/29/2024 10:28 AM Colleen Dumas MA * Moving or speaking so slowly that other people could have noticed? Or the opposite - being so fidgety or restless that you have been moving around a lot more than usual. Answer Date of Assessment Author Not at all 10/29/2024 10:28 AM Colleen Dumas MA * Thoughts that you would be better off or hurting yourself in some way Answer Date of Assessment Author Not at all 10/29/2024 10:28 AM Colleen Dumas MA * Patient Health Questionnaire-9 Score Answer Date of Assessment Author 7 10/29/2024 10:28 AM Colleen Dumas MA * How difficult have these problems made it for you to do your work, take care of things at home, or get along with other people? Answer Date of Assessment Author Somewhat difficult 10/29/2024 10:28 AM EDT Colleen Brumfield MA * Over the last 2 weeks, how often have you been bothered by any of the following problems? Question Answer Date of Assessment Author Feeling nervous, anxious, or on edge 0 10/29/2024 10:28 AM EDT Colleen Quintero MA Not being able to stop or co ntrol worrying 0 10/29/2024 10:28 AM TORIET Colleen Quintero MA Worrying too much about diff erent things 0 10/29/2024 10:28 AM EDT Colleen Quintero MA Trouble relaxing 0 10/29/2024 10:28 AM TORIET Colleen Quintero MA Being so restless that it is hard to sit still 0 10/29/2024 10:28 AM TORIET Colleen Quintero MA Becoming easily annoyed or irritable 0 10/29/2024 10:28 AM TORIET Colleen Quintero MA Feeling afraid as if somethi ng awful might happen 0 10/29/2024 10:28 AM Colleen Dumas MA NAHUM-7 Total Score 0 10/29/2024 10:28 AM Colleen Dumas MA documented as of this encounter Plan of Treatment Upcoming Encounters Date Type Department Care Team (Late st Contact Info) Description 02/02/2025 3:00 PM EDT Office Visit [facility] [address] [place] [address] Toyin Burch MD [address] [place] [address] Scheduled Orders Name Type Priority Associated Diagnoses Orde r Schedule US Abdomen Complete Imaging Routine Liver lesion Expected: 10/29/2024, Expires: 10/29/2025 Occult Blood, Fecal, Immunoassay Lab Routine Dark stools Expected: 10/29/2024 (Approximate), Expires: 10/29/2025 Iron And Total Iron Binding Capacity Lab Routine Dark stools Expected: 10/29/2024 (Approximate), Expires: 10/29/2025 Ferritin Lab Routine Dark stools Expected: 10/29/2024 (Approximate), Expires: 10/29/2025 CBC Lab Routine Annual physical exam Expected: 10/29/2024 (Approximate), Expires: 10/29/2025 Chlamydia/N. Gonorrhoeae RNA, TMA, Urogenitial Microbiology Routine Annual physical exam Expected: 10/29/2024 (Approximate), Expires: 10/29/2025 Comprehensive Metabolic Panel Lab Routine Annual physical exam Expected: 10/29/2024 (Approximate), Expires: 10/29/2025 Hemoglobin A1c Lab Routine Annual physical exam Expected: 10/29/2024 (Approximate), Expires: 10/29/2025 Hepatitis B Core Antibody, Total Lab Routine Annual physical exam Expected: 10/29/2024 (Approximate), Expires: 10/29/2025 Hepatitis B Surface Antibody, Qualitative Lab Routine Annual physical exam Expected: 10/29/2024 (Approximate), Expires: 10/29/2025 Hepatitis B surface antigen, EIA Lab Routine Annual physical exam Expected: 10/29/2024 (Approximate), Expires: 10/29/2025 Hepatitis C Antibody with Reflex to HCV, RNA, Quantitative, Real-Time PCR Lab Routine Annual physical exam Expected: 10/29/2024 (Approximate), Expires: 10/29/2025 HIV-1/2 Antigen and Antibodies, Fourth Generation, with Reflexes Lab Routine Annual physical exam Expected: 10/29/2024 (Approximate), Expires: 10/29/2025 Lipid Panel, Standard Lab Routine Annual physical exam Expected: 10/29/2024 (Approximate), Expires: 10/29/2025 Syphilis Screen Lab Routine Annual physical exam Expected: 10/29/2024 (Approximate), Expires: 10/29/2025 TSH with Reflex to Free T4 Lab Routine Annual physical exam Expected: 10/29/2024 (Approximate), Expires: 10/29/2025 Celiac Disease Comprehensive Panel Lab Routine Diarrhea, unspecified type Expected: 10/29/2024, Expires: 10/29/2025 documented as of this encounter Visit Diagnoses Diagnosis Liver lesion- Primary Other specified disorders of liver Dietary counseling Dietary surveillance and counseling Exercise counseling Dark stools Nonspecific abnormal finding in stool contents Diarrhea, unspecified type Annual physical exam Routine general medical examination at a health care facility documented in this encounter Additional Health Concerns Assessment Noted Time PHQ-9 Depression Total Score: 7 10/30/19 25 10:28 AM EDT documented as of this encounter Care Teams Clerical And Administrative Workers Relationship Specialty Start Date End Date Toyin Burch MD [address] [place] [address] PCP - General Internal Medicine 10/29/24 documented as of this encounter
--- OUTSIDE RECORDS SUMMARY | 2024-10-29 12:38 | XMS_ITS | Encounter Summary ---
Author Organization [facility] Address [address] [place] [address] Care Team Providers Care Cement Boat And Barge Loader Name Role Phone Pcp, No Primary Care Provider Unavailabl e Reason for Visit * Reason Comments Appointment Encounter Details Date Type Department Care Team ([facility] st Contact Info) Description 12/09/2022 Telephone [facility] [address] [place] [phone] Karsten Diaz MD [address] [place] [phone] Appointment Social History Tobacco Use Types Packs/Day Years Used Date Smoking Tobacco: Never Smokeless Tobacco: Never Sex and Gender Information Value Date Recorded Sex Assigned at Not on file Legal Sex Male 4:46 PM EDT Gender Identity Not on file Sexual Orientation Not on file documented as of this encounter Miscellaneous Notes * Telephone Encounter - Shaorn Marcelino - 12/13/2022 2:38 PM EDT All set * Telephone Encounter - Phuong Denny - 12/13/2022 2:13 PM EDT Please schedule below * Telephone Encounter - Phuong Denny - 12/10/2022 2:32 PM EDT Pt is seeing today 06/27 documented in this encounter Plan of Treatment Not on file documented as of this encounter Visit Diagnoses Not on filedocumented in this encounter Care Teams Cement Boat And Barge Loader Relationship Specialty Start Date End Date Pcp, No PCP - General General Medicine 10/25/22 documented as of this encounter
--- OUTSIDE RECORDS SUMMARY | 2024-10-29 12:38 | XMS_ITS | Encounter Summary ---
Author Organization [facility] Address [address] [place] [address] Phone Care Team Providers Care Airplane Inspector Name Role Phone Alicia Veliz MD Primary Care Provider [phone] Encounter Details Date Type Department Care Team (Late st Contact Info) Description 01/30/2017 Conversion Encounter [facility] [address] [place] [address] Social History Tobacco Use Types Packs/Day Years [...] on filedocumented in this encounter Care Teams Airplane Inspector Relationship Specialty Start Date End Date Alicia Veliz MD [address] [place] [address] PCP - General 01/24/17 documented as of this encounter
--- OUTSIDE RECORDS SUMMARY | 2024-10-29 12:38 | XMS_ITS | Referral Summary ---
Author Organization [facility] Address [address] [place] [address] Care Team Providers Care Mobile Designer Name Role Phone Patient, Has No Pcp Or Ref Primary Care Provider Unavailable Encounters Date Type Department Care Team Description 10/25/2024 2:07 PM EDT - 10/25/2024 5:17 PM EDT Emergency [facility] Emergency Department [address] [place], [place] [phone] Radha Aldana MD Abdominal pain, generalized (Primary Dx); Constipation, unspecified constipation type Discharge Disposition: Home or Self Care (01) from Last 3 Months Allergies No known active allergies Medications polyethylene glycol 3350 (MIRALAX) 17 gram packet Take 1 packet (17 g total) by mouth daily as needed for constipatio n. Mix powder in 4 to 8 oz of water, juice, coffee, or tea prior to administrat ion. 30 packet 10/25/2024 Active Social History Tobacco Use Types Packs/Day Years [...] 10/25/2024 1:48 PM EDT Plan of Treatment Not on file Procedures * Due to [place] [employer] law, this organization might not be sharing [...] Last 3 Months Results * Due to [place] [employer] law, this organization might not be sharing [...] obtain the completed interpretation. ? Workstation ID: [id number] Up-to-date CT equipment and radiation dose reduction [...] are within normal limits. Resulting Agency Comment [id number] Procedure Note Dez Caceres MD - 10/25/2024 [...] possible to obtain thecompleted interpretation. Workstation ID: [id number] Up-to-date CT equipment and radiation dose reduction techniques wereemployed. CTDIvol: 13.2 mGy. DLP: 692 mGy-cm. Radha Aldana MD IMG CT PROCEDURES Final Result * Munoz Top, Urine (10/25/2024 2:33 PM EDT) Pathologist [facility] Extra Tube Hold for add-ons. 10/25/2024 7:05 PM EDT [facility] Comment:Auto resulted. Urine Urine specimen collection, clean catch / Unknown Non-Blood Collection / Unknown 10/25/2024 2:33 PM EDT 10/25/2024 2:40 PM EDT Radha Aldana MD LAB URINE ORDERABLES Final Res ult [facility] [address] [place] [address], [place] * (ABNORMAL) Urinalysis W/Reflex to Microscopic & Culture (10/25/2024 2:33 PM EDT) Color, Urine Light Yellow Colorless, Light Yellow, Yellow, Dark Yellow 10/25/2024 2:49 PM EDT [facility] Clarity, Urine Clear Clear 10/25/2024 2:49 PM [facility] Specific [place], Urine 1.020 <1.030 10/25/2024 2:49 PM [facility] pH, Urine 8.0 4.6 - 8.0 10/25/2024 2:49 PM T [facility] Protein, Urine Trace(A) Negative 10/25/2024 2:49 PM T [facility] Glucose, Urine Normal Normal 10/25/2024 2:49 PM [facility] Ketones, Urine Negative Negative 10/25/2024 2:49 PM [facility] Bilirubin, Urine Negative Negative 10/25/2024 2:49 PM [facility] Blood, Urine Negative Negative 10/25/2024 2:49 PM [facility] Nitrite, Urine Negative Negative 10/25/2024 2:49 PM [facility] Urobilinogen, Urine Normal Normal 10/25/2024 2:49 PM [facility] Leukocyte Esterase, Urine Negative Negative 10/25/2024 2:49 PM [facility] WBC, Urine 1 0 - 2 /HPF 10/25/2024 2:49 PM [facility] RBC, Urine 1 0 - 2 /HPF 10/25/2024 2:49 PM [facility] Hyaline Casts, Urine 0 0 - 2 /LPF 10/25/2024 2:49 PM [facility] Bacteria, Urine None Seen None /HPF /HPF 10/25/2024 2:49 PM [facility] Mucus, Urine Rare /LPF 10/25/2024 2:49 PM EDT [facility] Urine Urine specimen collection, clean catch / Unknown Non-Blood Collection / Unknown 10/25/2024 2:33 PM EDT 10/25/2024 2:40 PM EDT us Radha Aldana MD LAB URINE ORDERABLES Final Res ult [facility] [address] [place] [address], [place] * (ABNORMAL) CBC Auto Differential (10/25/2024 2:24 PM EDT) WBC 4.6 3.8 - 10.8 10*3/uL 10/25/2024 2:50 PM EDT [facility] RBC 4.90 4.20 - 5.80 10*6/uL 10/25/2024 2:50 PM EDT [facility] Hemoglobin 11.9(L) 13.2 - 17.1 g/dL 10/25/2024 2:50 PM EDT [facility] Hematocrit 37.2(L) 38.5 - 50.0 % 10/25/2024 2:50 PM EDT [facility] MCV 75.9(L) 80.0 - 100.0 fL 10/25/2024 2:50 PM EDT [facility] MCH 24.3(L) 27.0 - 33.0 pg 10/25/2024 2:50 PM EDT [facility] MCHC 32.0 32.0 - 36.0 g/dL 10/25/2024 2:50 PM EDT [facility] RDW 14.1 11.0 - 15.0 % 10/25/2024 2:50 PM EDT [facility] Platelets 321 140 - 400 10*3/uL 10/25/2024 2:50 PM EDT [facility] MPV 9.3 7.5 - 12.5 fL 10/25/2024 2:50 PM EDT [facility] Neutrophil % 71.3 % 10/25/2024 2:50 PM EDT [facility] Immature Grans % 0.2 0.0 - 0.9 % 10/25/2024 2:50 PM T [facility] Lymphocyte % 20.1 % 10/25/2024 2:50 PM EDT [facility] Monocyte % 7.6 % 10/25/2024 2:50 PM EDT [facility] Eosinophil % 0.2 % [facility] Basophil % 0.6 % 10/25/2024 2:50 PM [facility] Neutrophil # 3.30 1.50 - 7.80 10*3/uL 10/25/2024 2:50 PM EDT [facility] Immature Grans # <0.03 <=0.03 10*3/uL 10/25/2024 2:50 [facility] Lymphocyte # 0.90 0.85 - 3.90 10*3/uL 10/25/2024 2:50 PM [facility] Monocyte # 0.40 0.20 - 0.95 10*3/uL 10/25/2024 2:50 PM EDT [facility] Eosinophil # <0.03 0.02 - 0.50 10*3/uL 10/25/2024 2:50 PM EDT [facility] Basophil # <0.03 0.00 - 0.20 10*3/uL 10/25/2024 2:50 PM [facility] nRBC % 0.0 /100 WBCs 10/25/2024 2:50 PM T [facility] nRBC # <0.01 <0.01 10*3/uL 10/25/2024 2:50 PM EDT [facility] Blood Structure of peripheral vein / Unknown Venipuncture / Unknown 10/25/2024 2:24 PM EDT 10/25/2024 2:27 PM EDT us Radha Aldana MD LAB BLOOD ORDERABLES Final Res ult Performing Organization Address City/[facility]/ZIP Co de Phone Number [facility] [address] [place] [address], [place] * Lipase (10/25/2024 2:24 PM EDT) Lipase 31 13 - 60 U/L 10/25/2024 3:02 PM EDT [facility] Blood Structure of peripheral vein / Unknown Venipuncture / Unknown 10/25/2024 2:24 PM EDT 10/25/2024 2:28 PM EDT us Radha Aldana MD LAB BLOOD ORDERABLES Final Res ult Performing Organization Address [facility] Co de Phone Number [facility] [address] [place] [address], [place] * (ABNORMAL) CMP - Comprehensive Metabolic Panel (10/25/2024 2:24 PM EDT) NA 140 135 - 145 mmol/L 10/25/2024 3:02 PM EDT [facility] K 4.0 3.5 - 5.3 mmol/L 10/25/2024 3:02 PM EDT [facility] Cl 104 98 - 107 mmol/L 10/25/2024 3:02 PM EDT [facility] CO2 25 22 - 32 mmol/L 10/25/2024 3:02 PM EDT [facility] Anion Gap 11 5 - 15 10/25/2024 3:02 PM EDT [facility] Glucose 102(H) 65 - 99 mg/dL 10/25/2024 3:02 PM T [facility] Creatinine 1.05 0.60 - 1.30 mg/dL 10/25/2024 3:02 PM [facility] Calcium 9.4 8.6 - 10.5 mg/dL 10/25/2024 3:02 PM [facility] Total Protein 7.3 6.0 - 8.0 g/dL 10/25/2024 3:02 PM [facility] Albumin 4.6 3.5 - 5.2 g/dL 10/25/2024 3:02 PM [facility] Bilirubin, Total 1.0 0.2 - 1.2 mg/dL 10/25/2024 3:02 PM [facility] Alkaline Phosphatase 55 35 - 129 U/L 10/25/2024 3:02 PM [facility] AST 24 10 - 40 U/L 10/25/2024 3:02 PM [facility] ALT 19 10 - 40 U/L 10/25/2024 3:02 PM [facility] BUN 10 7 - 23 mg/dL 10/25/2024 3:02 PM [facility] eGFR >90 >=60 mL/min/1. 73m2 10/25/2024 3:02 PM [facility] Comment:The estimated glomer ular [...] - 4.2 g/dL 10/25/2024 3:02 PM EDT [facility] A/G Ratio 1.7 1.5 - 3.0 10/25/2024 3:02 PM EDT [facility] Blood Structure of peripheral vein / Unknown Venipuncture / Unknown 10/25/2024 2:24 PM EDT 10/25/2024 2:28 PM EDT us Radha Aldana MD LAB BLOOD ORDERABLES Final Res ult [facility] [address] [place] [address], [place] from Last 3 Months Insurance [facility] [[email or web address]] Care Teams Mobile Designer Relationship Specialty Start Date End Date Patient, Has No Pcp Or Ref DO NOT EDIT THIS RECORD VIA PROVIDER ON THE FLY PCP - General Grants Specialist 10/25/24
--- OUTSIDE RECORDS SUMMARY | 2024-10-29 12:38 | XMS_ITS | Encounter Summary ---
Author Organization [employer] Address [address] [facility] [address] [place] [address] Care Team Providers Care Manufacturing Plant Technician Name Role Phone Unavailable Primary Care Provider Unavailabl e Reason for Visit * Reason Onset Date Comments CHART PREP 10/28/2024 Encounter Details Date Type Department Care Team ([facility] st Contact Info) Description 10/28/2024 Telephone [facility] [address] [place] [address] Toyin Burch MD [address] [place], [place] [phone] CHART PREP Social History Tobacco Use Types Packs/Day Years Used Date Smoking Tobacco: Never Assessed Depression Answer Date Recorded Patient Health Questionnaire-9 [...] AM EDT documented as of this encounter Miscellaneous Notes * Telephone Encounter - Chase Ernandez MA - 10/28/2024 1:45 PM EDT Chart Prep Labs: not applicable Images: CT ABD/Pelvis 10/25/24 Referrals: not applicable Vaccines due: Hep B Screenings: not applicable Overdue care gaps: SBIRT, SDOH, PHQ-9, NAHUM-7, Oral health screening, and Disability screen documented in this encounter Plan of Treatment Upcoming Encounters Date Type Department Care Team (Late st Contact Info) Description 02/02/2025 3:00 PM EDT Office Visit [facility] [address] [place] [phone] Toyin Burch MD [address] [place] [address] documented as of this encounter Visit Diagnoses Not on filedocumented in this encounter
--- OUTSIDE RECORDS SUMMARY | 2024-10-29 12:38 | XMS_ITS ---
Author Name [facility] Organization Unknown Problems Problem Status Onset Date Problem Type Date of Resoluti on Source Pelvic pain active EncounterDiagnosisAct CCT History of kidney stones [facility] En[facility] Encounter Type Encounter Reason Primary Diagnosis Location Date Ambulatory Personal history of urinary calculi Personal history of urinary calculi [facility] 01/21/2023 Ambulatory [facility] [place]/2022 Care Team Organization Name Specialty Phone Email Start Date End Da te [facility] NO PCP Primary Care 10/25/2022 10/25/2022 [employer] PCP,No Primary Care 10/25/2022
--- OUTSIDE RECORDS SUMMARY | 2024-10-29 12:38 | XMS_ITS | Encounter Summary ---
Author Organization [employer] Address [address] [place] [address] Care Team Providers Care Safety Attendant Name Role Phone Toyin Burch MD Primary Care Pro vider Encounter Details Date Type Department Care Team (Latest Contact Info) Description 10/29/2024 Travel Social History Tobacco Use Types Packs/Day Years Used Date Smoking Tobacco: Never Passive Smoke Exposure: Never Smokeless Tobacco: Never Alcohol Use Standard [...] housing situation today? I have jose a sing 10/29/[address] you li [...] AM EDT documented as of this encounter Functional Status * Over the past 2 weeks, how often have you been bothered by any of the following problems? Question Answer Date of Assessment Author Patient Health Questionnaire -2 Score 0 10/29/2024 10:28 AM EDT Colleen Quintero MA * Little interest or pleasure in doing things Answer Date of Assessment Author Not at all 10/29/2024 10:28 AM TORIET Colleen Quintero MA * Feeling down, depressed, or hopeless Answer Date of Assessment Author Not at all 10/29/2024 10:28 AM TORIET Colleen Quintero MA * Trouble falling or staying asleep, or sleeping too much Answer Date of Assessment Author Several days 10/29/2024 10:28 AM EDColleen Hastings MA * Feeling tired or having little [...] Author Not at all 10/29/2024 10:28 AM TORIET Colleen Quintero MA * Patient Health Questionnaire-9 Score Answer Date of Assessment Author 7 10/29/2024 10:28 AM TORIET Colleen Quintero MA * How difficult have these problems [...] co ntrol worrying 0 10/29/2024 10:28 AM EDT Colleen Quintero MA Worrying too much about diff erent things 0 10/29/2024 10:28 AM TORIET Colleen Quintero MA Trouble relaxing 0 10/29/2024 10:28 AM TORIET Colleen Quintero MA Being so restless that it is hard to sit still 0 10/29/2024 10:28 AM Colleen Dumas MA Becoming easily annoyed or irritable 0 10/29/2024 10:28 AM TORIET Colleen Quintero MA Feeling afraid as if somethi ng awful might happen 0 10/29/2024 10:28 AM TORIET Colleen Quintero MA NAHUM-7 Total Score 0 10/29/2024 10:28 AM Colleen Dumas MA documented as of this encounter Plan of Treatment Upcoming Encounters Date Type Department Care Team (Late st Contact Info) Description 02/02/2025 3:00 PM EDT Office Visit [facility] [address] [place] [phone] Toyin Burch MD [address] [place] [address] documented as of this encounter Visit Diagnoses Not on filedocumented in this encounter Additional Health Concerns Assessment Noted Time PHQ-9 Depression Total Score: 7 10/30/19 25 10:28 AM EDT documented as of this encounter Care Teams Safety Attendant Relationship Specialty Start Date End Date Toyin Burch MD [address] [place] [address] PCP - General Internal Medicine 10/29/24 documented as of this encounter
--- OUTSIDE RECORDS SUMMARY | 2024-10-29 12:38 | XMS_ITS | Encounter Summary ---
Author Organization [facility] Address [address] [place] [address] Care Team Providers Care Plain Goods Hemmer Name Role Phone Pcp, No Primary Care Provider Unavailabl e Encounter Details Date Type Department Care Team (Late st Contact Info) Description 10/31/2022 Telephone [facility] [address] [place] [address] Sue Arnold MA [address] [facility] [address] [place] [address] Social History Tobacco Use Types Packs/Day Years Used Date Smoking Tobacco: Never Smokeless Tobacco: Never Sex and Gender Information Value Date Recorded Sex Assigned at Not on file Legal Sex Male 4:46 PM EDT Gender Identity Not on file Sexual Orientation Not on file COVID-19 Exposure Response Date Recorded In the last 10 days, have yo u been in contact with someone who was confirmed or suspected to have Coronavirus/COVID-19? Unable to assess 10/25/2022 4:46 PM EDT documented as of this encounter Plan of Treatment Not on file documented as of this encounter Visit Diagnoses Not on filedocumented in this encounter Care Teams Plain Goods Hemmer Relationship Specialty Start Date End Date Pcp, No PCP - General General Medicine 10/25/22 documented as of this encounter
--- OUTSIDE RECORDS SUMMARY | 2024-10-29 12:38 | XMS_ITS | Clinical Summary ---
Author Organization [facility] Address [address] [place] [address] Phone Care Team Providers Care Waste Machine Offbearer Name Role Phone Alicia Veliz MD Primary Care Provider [phone] Immunizations Immunization Administration Dates Next Due DTP 08/05/1996, 4,1992,06/28,1992 Hep B, ped/adol 1992,1992,1992 Hib (PRP-T) 05/17/1993, 3,1992,04/19 Influenza, injectable, trivalent 03/25/2006,03/16,04/03/2004 MMR 08/05/1996,05/17/1993 Meningococcal Conj (Menactra) MCV4P 02/11/2007 OPV 08/05/1996, 4,1992,04/19 Td (adult) (MBL), 2 Lf tetan us toxoid, PF, adsorbed 12/30/2003 Tdap 03/03/2008 Varicella 03/03/2008,04/27/1998 Family History Relation Name Status Comments Father Alive Father: Hearing impairment Mother Mother: Migrain es Social History Tobacco Use Types Packs/Day Years Used Date Smoking Tobacco: Never Assessed Sex and Gender Information Value Date Recorded Sex Assigned at Not on file Legal Sex Male 4:32 PM EDT Gender Identity Not on file Sexual Orientation Not on file Last Filed Vital Signs Vital Sign Reading Time Taken Comments Blood Pressure 126/60 03/13/2010 12:00 AM EDT Pulse - - Temperature 35.8 ??C (96.4 ??F) 01/01/2010 12:00 AM E DT Respiratory Rate - - Oxygen Saturation - - Inhaled Oxygen Concentration - - Weight 76.2 kg (168 lb) 03/13/2010 12:00 AM EDT Height 174 cm (5' 8.5 ) 03/13/2010 12:00 AM EDT Body Mass Index 25.17 03/13/2010 12:00 AM EDT Plan of Treatment Health Maintenance Due Date Last Done Comments DTaP,Tdap,and Td Vaccines (7 - Td or Tdap) 03/03/2018 03/03/2008, 12/30/2003, 08/05/1996, Additional history exists Influenza Vaccines (#1) 2024 03/25/20, 04/02/2005, 04/03/2004 COVID-19 Vaccine ( season) 2024 Hepatitis B Vaccines Completed 1992, 1992, 1992 HIB Vaccines Completed 05/17/1993, 08/14, 1992, Additional history exists IPV Vaccines Completed 08/05/1996, 06/1993, 1992, Additional history exists MMR Vaccines Completed 08/05/1996, 05/17/1993 Meningococcal Vaccine Aged Out 02/11/2007 No jack tracey eligible based on patient's age to complete this topic Varicella Vaccines Completed 03/03/2008, 04/27/1998 HPV Vaccines Aged Out No longer eligi ble based on patient's age to complete this topic Hepatitis A Vaccines Aged Out No long er eligible based on patient's age to complete this topic Men B Vaccine Aged Out No longer elig ible based on patient's age to complete this topic Pneumococcal Vaccine Aged Out No long er eligible based on patient's age to complete this topic Care Teams Waste Machine Offbearer Relationship Specialty Start Date End Date Alicia Veliz MD [address] [place] [address] ALEN Velasquez [id number] PCP - General 01/24/17
--- OUTSIDE RECORDS SUMMARY | 2024-10-29 12:39 | XMS_ITS | Encounter Summary ---
Author Organization Address [address] [place] [address] Care Team Providers Care Healthcare Educator Name Role Phone Unavailable Primary Care Provider Unavailabl e Encounter Details Date Type Department Care Team (Late st Contact Info) Description 10/28/2024 Telephone Gastroenterology - [address] [place] [phone] Papo Urbina MD [address] [place] [phone] Social History Tobacco Use Types Packs/Day Years Used Date Smoking Tobacco: Never Assessed Sex and Gender Information Value Date Recorded Sex Assigned at Not on file Legal Sex Male 11:20 AM EDT Gender Identity Not on file Sexual Orientation Not on file documented as of this encounter Progress Notes * Taylor Purdy - 10/28/2024 11:30 AM EDT REFERRAL RECEIVED FROM [facility].PT IS BOOKED FOR 11/25 documented in this encounter Plan of Treatment Upcoming Encounters Date Type Department Care Team (Late st Contact Info) Description 11/25/2024 3:30 PM EDT Consult Gastroenterology - [address] [place] [phone] Amilcar Tucker PA [address] [place] [address] [place] [phone] documented as of this encounter Visit Diagnoses Not on filedocumented in this encounter
--- OUTSIDE RECORDS SUMMARY | 2024-10-29 12:39 | XMS_ITS | Clinical Summary ---
Author Organization [facility] [address] [facility] [facility] Address [address] [place] [address] Phone Care Team Providers Care Cable Supervisor Name Role Phone Unavailable Primary Care Provider Unavailabl e Encounters Date Type Department Care Team Description 10/28/2024 Telephone Gastroenterology - [address] [phone] Papo Urbina MD from Last 3 Months Social History Tobacco Use Types Packs/Day Years Used Date Smoking Tobacco: Never Assessed Sex and Gender Information Value Date Recorded Sex Assigned at Not on file Legal Sex Male 11:20 AM EDT Gender Identity Not on file Sexual Orientation Not on file Plan of Treatment Upcoming Encounters Date Type Department Care Team (Late st Contact Info) Description 11/25/2024 3:30 PM EDT Consult Gastroenterology - [address] [phone] Amilcar Tucker PA [address] [address] Health Maintenance Due Date Last Done Comments DTaP,Tdap,and Td Vaccines (1 - Tdap) 02/11/2011 Hepatitis B Vaccines (1 of 3 - 19+ 3-dose series) 02/11/2011 COVID-19 Vaccine ( - 2023-2 5 season) 2024 Depression Screening 10/28/2024 HIV Screening 10/28/2024 Hepatitis C Screening 10/28/2024 Social Influencers of Health Screening 10/28/2024 Influenza Vaccine (Season Ended) 2025 HIB Vaccines Aged Out No longer eligi ble based on patient's age to complete this topic HPV Vaccines Aged Out No longer eligi ble based on patient's age to complete this topic Hepatitis A Vaccines Aged Out No long er eligible based on patient's age to complete this topic IPV Vaccines Aged Out No longer eligi ble based on patient's age to complete this topic MMR Vaccines Aged Out No longer eligi ble based on patient's age to complete this topic Meningococcal ACWY Vaccine Aged Out N o longer eligible based on patient's age to complete this topic Meningococcal B Vaccine Aged Out No l onger eligible based on patient's age to complete this topic Pneumococcal Vaccine: Pediat rics (0 to 5 Years) and At-Risk Patients (6 to 64 Years) Aged Out No longer eligible b ased on patient's age to complete this topic RSV Immunization Patients Un laura 20 months Aged Out No longer eligible b ased on patient's age to complete this topic Varicella Vaccines Aged Out No longer eligible based on patient's age to complete this topic Insurance [facility]
[2024-10-29 16:31] LABS: Hematocrit 38.7 % (42.0-52.0); Hemoglobin 11.9 g/dl (14.0-18.0); Mean Corpuscular HGB Conc 30.7 g/dl (31.0-36.0); Mean Corpuscular Hemoglobin 23.7 pg (27.0-33.0); Mean Corpuscular Volume 77.1 fL (80.0-98.0); Mean Platelet Volume 10.6 fL (9.4-12.4); Platelet Count 254 X10*3/uL (160-400); Red Blood Count 5.02 X10*6/uL (4.60-5.80); Red Cell Distribution Width 14.2 % (11.0-16.0); White Blood Count 3.9 X10*3/uL (4.8-10.8)
[2024-10-29 16:35] LABS: Estimated Average Glucose 103 mg/dL; Hemoglobin A1C 105.2504 umol/L; Hemoglobin A1c % 5.2 % (<6.0); Total Hemoglobin (HGBA1C) 3130.8928 umol/L
[2024-10-29 16:53] LABS: Alanine Aminotransferase 28 U/L (0-40); Albumin Level 4.7 g/dL (3.5-5.0); Alkaline Phosphatase 51 U/L (39-117); Anion Gap 15 (12-20); Aspartate Amino Transferase 20 U/L (5-37); Bilirubin Total 1.5 mg/dL (0.0-1.0); Blood Urea Nitrogen 12 mg/dL (9-16); Calcium 9.5 mg/dL (8.4-10.2); Carbon Dioxide 26 mmol/L (22-29); Chloride 105 mmol/L (96-108); Cholesterol 192 mg/dL (<200); Estimated Glomerular Filt Rate > 60; Glucose Random 101 mg/dL (60-115); HDL Cholesterol 52 mg/dL (>40); Iron 28 mcg/dL (45-160); LDL Cholesterol Calculated 132 mg/dL (<100); Percent Iron Saturation 6 % (15-50); Potassium 4.6 mmol/L (3.3-5.1); Sodium 141 mmol/L (135-145); Total Iron Binding Capacity 436 mcg/dL (228-428); Total Protein 7.2 g/dL (6.5-8.0); Triglycerides 43 mg/dL (<150); Unsaturated Iron Binding 408 ug/dL
[2024-10-29 16:57] LABS: Ferritin 10 ng/mL (20-250)
[2024-10-29 17:41] LABS: CT PCR NOT DETECTED (Not Detect.); NG PCR NOT DETECTED (Not Detect.)
[2024-10-30 07:46] LABS: Syphilis Screen Nonreactive (Nonreactive)
[2024-10-30 08:01] LABS: HBS Num1 0.21 mIU/mL (0-7.99); HBc Num1 0.05 S/CO (0.00-0.79); HBsAGNum1 0.37 S/CO (0.00-0.99); HIV AB/AG Nonreactive (Nonreactive); HIV Num 1 0.06 S/CO (0.00-0.99); Hepatitis B Core Antibody Nonreactive (Nonreactive); Hepatitis B Surface Antigen Negative (Negative); ~HepC Num1 0.06 S/CO (0.00-0.79); ~Hepatitis B Surface Antibody NONREACTIVE (Nonreactive); ~Hepatitis C Antibody Nonreactive (Nonreactive)
[2024-11-02 20:04] LABS: Immunoglobulin A 86 mg/dL (47-310); Transglutaminase IgA <1.0 U/mL
== END 2024-10-29 12:32 | disposition home or self-care (01) ==
LOC: HO.HHCL 12:31
PROVIDERS: Visit Provider Student in an Organized Health Care Education/Training Program
DX: Z00.00 Encounter for general adult medical examination without abnormal findings (principal); R19.5 Other fecal abnormalities; R19.7 Diarrhea, unspecified
CPT/HCPCS: 36415; 80053; 80061; 82728; 82784; 83036; 83540; 84443; 85027; 86364; 86704; 86706; 86780; 86803; 87340; 87389; 87491; 87591

== ENCOUNTER 2024-12-03 11:27 | Outpatient (REF) | payer OTHER, SELFPAY ==
--- NOTE | ~2024-12-03 | US_ITS ---
CLINICAL HISTORY: liver lesion seen on CT scan recently but not specified where US abdomen complete with duplex and color Doppler Comparison: Relevant priors not available for comparison at the time of this interpretation Findings: The visualized pancreas, aorta, and inferior vena cava are unremarkable. Liver normal size and echotexture. Right lobe 14.9 cm length. No focal hepatic masses. Common duct 1.4 mm diameter. Physiologic distention of the gallbladder. No gallstones or sludge. No gallbladder wall thickening. No pericholecystic fluid. No sonographic Mujica sign. Main portal vein antegrade. Right kidney normal size, 10.8 cm in length. Normal cortical width and echotexture. No solid or cystic renal masses. No nephrolithiasis. No hydronephrosis. Left kidney normal, 11.9 cm in length. Normal cortical width and echotexture. No solid or cystic renal masses. No nephrolithiasis. No hydronephrosis. Spleen measures 13.4 cm. No splenic masses. No ascites. No lymphadenopathy. Impression: 1. Mild splenomegaly 2. No hepatomegaly. No liver mass was demonstrated on sonography. Previous CT with liver lesion was not available for comparison at the time of this interpretation. This document has been electronically signed by: Drew Sow MD on 12/04/2024 14:43:57
--- OUTSIDE RECORDS SUMMARY | 2024-12-03 11:49 | XMS_ITS | Clinical Summary ---
Author Organization [facility] Address [address] [place] [address] Care Team Providers Care Stone Circular Sawyer Name Role Phone Patient, Has No Pcp [...] EDT - 10/25/2024 5:17 PM EDT Emergency [facility] Emergency Department [address] [place] [address] Radha Aldana MD Abdominal pain, generalized (Primary [...] 69 10/25/2024 5:05 PM EDT Temperature 36.6 C (97.8 F) 10/25/2024 5:05 PM EDT Respiratory Rate 18 10/25/2024 5:05 PM EDT Oxygen Saturation 100% 10/25/2024 5:05 PM EDT Inhaled Oxygen Concentration - - Weight 81.6 kg (180 lb) 10/25/2024 1:48 PM EDT Height 180.3 cm (5' 11 ) 10/25/2024 1:48 PM EDT Body Mass Index 25.1 10/25/2024 1:48 PM EDT Plan of Treatment Health Maintenance Due Date Last Done Comments HIV Screening 1992 Hepatitis C Screening 1992 COVID-19 Vaccine ( season) 2024 03/12/2021 Alcohol/Substance Use Screening 06/16/2024 Depression Screening and Follow-Up 06/16/2024 Social Drivers of Health Annual Screening 06/16/2024 Influenza Vaccine (Season Ended) 2025 03/25/2006, 04/02/2005, 04/03/2004 DTaP,Tdap,and Td Vaccines (8 - Td or Tdap) 04/26/2033 04/26/2023, 03/03/2008, 12/30/2003, Additional history exists RSV Vaccine (60+ years old and patients) (1 - 1-dose 75+ series) 02/11/2067 Hepatitis B Vaccines Completed 1992, 1992, 1992 Varicella Vaccines Completed 03/03/2008, 04/27/1998 Pneumococcal Vaccine: Pediatric (0-5 Years) and At-Risk Patients (6-50 Years) Aged Out No longer eligible based on patient's age to complete this topic Procedures * Due to [place] state law, this organization might not be [...] Last 3 Months Results * Due to [place] state law, this organization might not be sharing negative HIV tests. * CT Abd Pelvis W Contrast (10/25/2024 3:23 PM EDT) Anatomical Region Laterality Modality Body Computed Tomogra phy 10/25/2024 3:29 PM EDT Impressions 10/25/2024 4:00 PM EDT Moderate colonic stool burden. No acute intra-abdominal abnormality. IDez, have reviewed the examination and concur with the findings as reported or so edited. Trainee: Jose Ramon Phan If this radiology report contains a blank impression section, it is an incomplete radiology report. Please contact the interpreting radiologist or applicable radiology division as soon as possible to obtain the completed interpretation. Workstation ID: [id number] Up-to-date CT equipment and radiation dose reduction [...] are within normal limits. Resulting Agency Comment [id number] Procedure Note Dez Caceres MD - 10/25/2024 [...] the findings asreported or so edited. Trainee: JoseR amon Phan If this radiology report contains a blank impression section, it is anincomplete radiology report. Please contact the interpreting radiologistor applicable radiology division as soon as possible to obtain thecompleted interpretation. Workstation ID: [id number] Up-to-date CT equipment and radiation dose reduction techniques wereemployed. CTDIvol: 13.2 mGy. DLP: 692 mGy-cm. us Radha Aldana MD IM CT PROCEDURES Final Result * Munoz Top, Urine (10/25/2024 2:33 PM EDT) Extra Tube Hold for add-ons. 10/25/2024 7:05 PM EDT [facility] Comment:Auto resulted. Urine Urine specimen collection, clean catch / Unknown Non-Blood Collection / Unknown 10/25/2024 2:33 PM EDT 10/25/2024 2:40 PM EDT us Radha Aldana MD LAB URINE ORDERABLES Final Res ult [facility] [address] [place] [address], [place] * (ABNORMAL) Urinalysis W/Reflex to Microscopic & Culture (10/25/2024 2:33 PM EDT) Color, Urine Light Yellow Colorless, Light Yellow, Yellow, Dark Yellow 10/25/2024 2:49 PM EDT [facility] Clarity, Urine Clear Clear 10/25/2024 2:49 PM EDT [facility] Specific Lanse, Urine 1.020 <1.030 10/25/2024 2:49 PM EDT [facility] pH, Urine 8.0 4.6 - 8.0 10/25/2024 2:49 PM EDT [facility] Protein, Urine Trace(A) Negative 10/25/2024 2:49 PM EDT [facility] Glucose, Urine Normal Normal 10/25/2024 2:49 PM EDT [facility] Ketones, Urine Negative Negative 10/25/2024 2:49 PM EDT [facility] Bilirubin, Urine Negative Negative 10/25/2024 2:49 PM EDT [facility] Blood, Urine Negative Negative 10/25/2024 2:49 PM EDT [facility] Nitrite, Urine Negative Negative 10/25/2024 2:49 PM EDT [facility] Urobilinogen, Urine Normal Normal 10/25/2024 2:49 PM EDT [facility] Leukocyte Esterase, Urine Negative Negative 10/25/2024 2:49 PM EDT [facility] WBC, Urine 1 0 - 2 /HPF 10/25/2024 2:49 PM EDT [facility] RBC, Urine 1 0 - 2 /HPF 10/25/2024 2:49 PM EDT [facility] Hyaline Casts, Urine 0 0 - 2 /LPF 10/25/2024 2:49 PM EDT [facility] Bacteria, Urine None Seen None /HPF /HPF 10/25/2024 2:49 PM EDT [facility] Mucus, Urine Rare /LPF 10/25/2024 2:49 PM EDT [facility] Urine Urine specimen collection, clean catch / Unknown Non-Blood Collection / Unknown 10/25/2024 2:33 PM EDT 10/25/2024 2:40 PM EDT us Radha Aldana MD LAB URINE ORDERABLES Final Res ult [facility] [address] [place] [address], * (ABNORMAL) CBC Auto Differential (10/25/2024 2:24 PM EDT) WBC 4.6 3.8 - 10.8 10*3/uL 10/25/2024 2:50 PM EDT [facility] RBC 4.90 4.20 - 5.80 10*6/uL 10/25/2024 2:50 PM EDT [facility] Hemoglobin 11.9(L) 13.2 - 17.1 g/dL 10/25/2024 2:50 PM EDT [facility] Hematocrit 37.2(L) 38.5 - 50.0 % 10/25/2024 2:50 PM EDT [facility] MCV 75.9(L) 80.0 - 100.0 fL 10/25/2024 2:50 PM EDT [facility] MCH 24.3(L) 27.0 - 33.0 pg 10/25/2024 2:50 PM EDT [facility] MCHC 32.0 32.0 - 36.0 g/dL 10/25/2024 2:50 PM EDT [facility] RDW 14.1 11.0 - 15.0 % 10/25[facility]2024 [facility] Platelets 321 140 - 400 10*3/uL 10/25/2024 2:50 PM [facility] MPV 9.3 7.5 - 12.5 fL 10/25/2024 2:50 PM EDT [facility] Neutrophil % 71.3 % 10/25/2024 2:50 PM EDT [facility] Immature Grans % 0.2 0.0 - 0.9 % 10/25/2024 2:50 PM EDT [facility] Lymphocyte % 20.1 % 10/25/2024 2:50 PM EDT [facility] Monocyte % 7.6 % 10/25/2024 2:50 PM EDT [facility] Eosinophil % 0.2 % 10/25/2024 2:50 PM EDT [facility] Basophil % 0.6 % 10/25/2024 2:50 PM EDT [facility] Neutrophil # 3.30 1.50 - 7.80 10*3/uL 10/25/2024 2:50 PM EDT [facility] Immature Grans # <0.03 <=0.03 10*3/uL 10/25/2024 2:50 PM EDT [facility] Lymphocyte # 0.90 0.85 - 3.90 10*3/uL 10/25/2024 2:50 PM EDT [facility] Monocyte # 0.40 0.20 - 0.95 10*3/uL 10/25/2024 2:50 PM EDT [facility] Eosinophil # <0.03 0.02 - 0.50 10*3/uL 10/25/2024 2:50 PM EDT [facility] Basophil # <0.03 0.00 - 0.20 10*3/uL 10/25/2024 2:50 PM EDT [facility] nRBC % 0.0 /100 WBCs 10/25/2024 2:50 PM EDT [facility] nRBC # <0.01 <0.01 10*3/uL 10/25/2024 2:50 PM EDT [facility] Blood Structure of peripheral vein / Unknown Venipuncture / Unknown 10/25/2024 2:24 PM EDT 10/25/2024 2:27 PM EDT us Radha Aldana MD LAB BLOOD ORDERABLES Final Res ult [facility] [address] [place] [address], * Lipase (10/25/2024 2:24 PM EDT) Lipase 31 13 - 60 U/L 10/25/2024 3:02 PM EDT [facility] Blood Structure of peripheral vein / Unknown Venipuncture / Unknown 10/25/2024 2:24 PM EDT 10/25/2024 2:28 PM EDT us Radha Aldana MD LAB BLOOD ORDERABLES Final Res ult [facility] [address] [place] [address], * (ABNORMAL) CMP - Comprehensive Metabolic Panel (10/25/2024 2:24 PM EDT) NA 140 135 - 145 mmol/L 10/25/2024 3:02 PM EDT [facility] K 4.0 3.5 - 5.3 mmol/L 10/25/2024 3:02 PM EDT [facility] Cl 104 98 - 107 mmol/L 10/25/2024 3:02 PM EDT [facility] CO2 25 22 - 32 mmol/L 10/25/2024 3:02 PM EDT [facility] Anion Gap 11 5 - 15 10/25/2024 3:02 PM EDT [facility] Glucose 102(H) 65 - 99 mg/dL 10/25/2024 3:02 PM EDT [facility] Creatinine 1.05 0.60 - 1.30 mg/dL 10/25/2024 3:02 PM EDT [facility] Calcium 9.4 8.6 - 10.5 mg/dL 10/25/2024 3:02 PM EDT [facility] Total Protein 7.3 6.0 - 8.0 g/dL 10/25/2024 3:02 PM EDT [facility] Albumin 4.6 3.5 - 5.2 g/dL 10/25/2024 3:02 PM EDT [facility] Bilirubin, Total 1.0 0.2 - 1.2 mg/dL 10/25/2024 3:02 PM EDT [facility] Alkaline Phosphatase 55 35 - 129 U/L 10/25/2024 3:02 PM EDT [facility] AST 24 10 - 40 U/L 10/25/2024 3:02 PM EDT [facility] ALT 19 10 - 40 U/L 10/25/2024 3:02 PM EDT [facility] BUN 10 7 - 23 mg/dL 10/25/2024 3:02 PM EDT [facility] eGFR >90 >=60 mL/min/1. 73m2 10/25/2024 3:02 PM EDT [facility] Comment:The estimated [...] 4.2 g/dL 10/25/2024 3:02 PM EDT [facility] A/G Ratio 1.7 1.5 - 3.0 10/25/2024 3:02 PM EDT [facility] Blood Structure of peripheral vein / Unknown Venipuncture / Unknown 10/25/2024 2:24 PM EDT 10/25/2024 2:28 PM EDT us Radha Aldana MD LAB BLOOD ORDERABLES Final Res ult [facility] [address] [place] [address], [place] from Last 3 Months Insurance Care Teams Stone Circular Sawyer Relationship Specialty Start Date End Date Patient, Has No Pcp Or Ref DO NOT EDIT THIS RECORD VIA PROVIDER ON THE FLY PCP - General Sharepoint Net Developer 10/25/24
== END 2024-12-03 11:28 | disposition home or self-care (01) ==
LOC: HO.HMGCX 11:27
PROVIDERS: PCP Student in an Organized Health Care Education/Training Program; Visit Provider Student in an Organized Health Care Education/Training Program
DX: R16.1 Splenomegaly, not elsewhere classified (principal); K76.9 Liver disease, unspecified
CPT/HCPCS: 76700

== ENCOUNTER → 2024-12-03 11:30 | Outpatient (BNV) | payer OTHER, SELFPAY | PROVIDERS: PCP Student in an Organized Health Care Education/Training Program; Visit Provider Radiology Diagnostic Radiology | DX: R16.1 Splenomegaly, not elsewhere classified (principal) | CPT/HCPCS: 76700 ==